=== PATIENT | male | born 1940 | race Hispanic/Latino ===

== ENCOUNTER 2020-05-18 15:00 | Outpatient (CLI) | payer MEDICARE, BC ==
--- NOTE | 2020-05-18 15:41 | RAD ---
3 views right wrist: 05/18/2020 COMPARISON: 05/18/2020 HISTORY: Injury, pain FINDINGS: There is degenerative change involving the distal carpal row laterally and the first carpom etacarpal joint. There is mild radiocarpal joint space narrowing. There is no widening of the scapholunate interval. There is no displaced fracture or evidence of dislocation seen. IMPRESSION: Degenerative joint disease. No acute fracture or dislocation. If there is clinical concer n for radio occult fracture, follow-up in 7-10 days with dedicated scaphoid views advised.
--- NOTE | 2020-05-18 15:43 | RAD ---
Right hand 3 views: 05/18/2020 COMPARISON: None available HISTORY: Right hand injury, pain of the second digit FINDINGS: There are degenerative changes involving the first through third metacarpophalangeal joints , the first interphalangeal joint, the second and third proximal interphalangeal joint, and the second through fifth distal interphalangeal joints. No radiopaque foreign body or subcutaneous gas. N o displaced fracture or evidence of dislocation. IMPRESSION: Multifocal degenerative joint disease. No displaced fracture or dislocation.
== END 2020-05-18 15:01 | disposition home or self-care (01) ==
LOC: BICRAD 15:00
PROVIDERS: ATTEND Family Medicine
DX: M79.641 Pain in right hand (principal); M19.041 Primary osteoarthritis, right hand; M15.1 Heberden's nodes (with arthropathy); M18.11 Unilateral primary osteoarthritis of first carpometacarpal joint, right hand

== ENCOUNTER 2022-03-11 09:33 | Outpatient (CLI) | payer MEDICARE, BC | END 2022-03-11 09:34 | disposition home or self-care (01) | LOC: BICRAD 09:33 | PROVIDERS: ATTEND Family Medicine | DX: M25.511 Pain in right shoulder (principal); M19.011 Primary osteoarthritis, right shoulder ==

== ENCOUNTER 2022-07-04 03:40 | Inpatient (IN) | payer MEDICARE, BC ==
[2022-07-04 04:21] LABS: #Lymphocytes 3.2 thou/uL (1.20-3.40); #Monocytes 0.9 thou/uL (0.11-0.59); #Neutrophils 13.5 thou/uL (1.40-6.50); %Basophils 0.2 % (0.0-1.0); %Eosinophils 0.1 % (0.0-10.0); %Lymphocytes 18.1 % (21.0-51.0); %Monocytes 5.2 % (0.0-10.0); %Neutrophils 76.3 % (42.0-75.0); Hemoglobin 13.6 g/dL (14.0-18.0); Mean Corpuscular Hemoglobin 32.4 pg (27.0-31.0); Mean Corpuscular Volume 95.4 fl (78.0-98.0); Mean Platelet Volume 10.3 fL (7.4-10.4); Platelet Count 245 10x3/uL (130-400); RBC Distribution Width 13.2 % (11.5-14.5); White Blood Cell (WBC) Count 17.7 10x3/uL (4.8-10.8)
[2022-07-04 04:47] LABS: ALT (SGPT) 131 U/L (8-55); AST (SGOT) 84 U/L (5-34); Alkaline Phosphatase 94 U/L (40-110); Anion Gap 14 mmol/L (10-20); BUN (Urea Nitrogen) 18 mg/dL (8.4-25.7); Bilirubin, Total 1.8 mg/dL (0.2-1.2); Calc. Creatinine Clearance 0 mL/min (70-130); Calcium 9.5 mg/dL (7.8-10.44); Carbon Dioxide 23 mmol/L (23-31); Chloride 101 mmol/L (98-107); Estimated GFR 82; Globulin 3.6 g/dL (2.4-3.5); Glucose 105 mg/dL (83-110); Lipase 885 U/L (8-78); Protein, Total 7.6 g/dL (5.8-8.1); Sodium 135 mmol/L (136-145)
[2022-07-04] MEDS ORDERED: Piperacillin/Tazobactam 3.375 GM VIAL ONE (06:16)
[2022-07-04] MEDS ORDERED: Ondansetron PF 4 MG/2 ML Vial ONE ×2 (06:16→14:50)
[2022-07-04] MEDS ORDERED: Morphine 4 MG/ML VIAL ONE (06:16)
[2022-07-04 07:51] LABS: Bilirubin Negative (Negative); Blood, Urine 3+ (Negative); Clarity Clear (Clear); Glucose, Urine (Dipstick) Normal (Negative); Ketone, Urine Negative (Negative); Leukocyte 25 Leu/uL (Negative); Nitrite Negative (Negative); Protein, Urine (Dipstick) 30 mg/dL (Neg-Trace); RBC/HPF Greater than 50 HPF (0-3); Specific Gravity, Urine 1.049 (1.002-1.036); Squamous Epithelial 0-3 HPF (0-3); Urobilinogen 3 mg/dL (Less than 2); WBC/HPF 21-50 HPF (0-3)
[2022-07-04 08:12] LABS: Bacteria/HPF Rare-Few HPF (None Seen)
[2022-07-04] MEDS ORDERED: FENTANYL 50 MCG/ML 1 ML VIAL SLOW IVP PRN (09:27)
[2022-07-04] MEDS ORDERED: Ondansetron PF 4 MG/2 ML Vial IVP PRN (09:28)
[2022-07-04] MEDS ORDERED: D5 1/2 NS w/20 mEq KCL 1,000 ML IV SCH (09:30)
[2022-07-04] MEDS ORDERED: Acetaminophen 325 MG TAB PO PRN (09:31)
[2022-07-04 09:39] VITALS: BMI 31.3
[2022-07-04] MEDS ORDERED: Morphine 2 MG/ML VIAL SLOW IVP PRN (09:40)
[2022-07-04] MEDS ORDERED: Potassium Chloride 20 MEQ in Premix Bag 1 BAG IVPB SCH (10:30)
[2022-07-04] MEDS ORDERED: Iopamidol-370 76% 500 ML 1 ML ONE (10:58)
[2022-07-04 12:01] LABS: SARS-CoV-2 NAA Rapid Test Not Detected (NotDetected)
[2022-07-04] MEDS: Potassium Chloride 20 MEQ in Lactated Ringer's 1,000 ML IV SCH (12:45)
[2022-07-04] MEDS ORDERED: fentaNYL PF 100 MCG/2 ML SYRINGE ONE (14:00)
[2022-07-04] MEDS ORDERED: PHENYLEPHRINE-NS 100 MCG/ML 10 ML SYRINGE ONE ×2 (14:00→14:50)
[2022-07-04] MEDS ORDERED: Bupivacaine/Epinephrine 0.25% 30 ML VIAL ONE (14:28)
[2022-07-04] MEDS: Piperacillin/Tazobactam 3.375 GM in Sodium Chloride 0.9% 100 ML IVPB SCH ×2 (14:38→23:11)
[2022-07-04] MEDS ORDERED: Rocuronium Bromide 10 MG/ML (10ML VIAL) ONE (14:50)
[2022-07-04] MEDS ORDERED: NEOSTIGMINE 3 MG/3 ML SYR 3 MG/3 ML SYRINGE ONE (14:50)
[2022-07-04] MEDS ORDERED: Glycopyrrolate 0.2 MG/ML 5 ML SYRINGE ONE (14:50)
[2022-07-04] MEDS ORDERED: Lidocaine 1% PF 5 ML VIAL ONE (14:50)
[2022-07-04] MEDS ORDERED: PROPOFOL 200 MG/20 ML VIAL ONE (14:50)
[2022-07-04] MEDS ORDERED: Iopamidol 15 ML ONE (15:25)
[2022-07-04] MEDS ORDERED: traMADol HCl 50 MG TAB PO PRN (16:40)
[2022-07-04] MEDS ORDERED: FENTANYL 50 MCG/ML 1 ML VIAL ONE (16:57)
[2022-07-04] MEDS ORDERED: SUGAMMADEX SODIUM 200 MG/2 ML VIAL ONE (17:00)
[2022-07-04] MEDS ORDERED: Ondansetron HCl/PF 4 MG/2 ML Vial IVP PRN (17:05)
[2022-07-04] MEDS ORDERED: Promethazine HCl 25 MG/ML VIAL IM PRN (17:05)
[2022-07-04] MEDS: Acetaminophen 325 MG TAB PO SCH ×2 (17:47→23:12)
[2022-07-04] MEDS: Famotidine/PF 20 mg/2ml Vial SLOW IVP SCH (20:02)
[2022-07-05] MEDS: Potassium Chloride 20 MEQ in Lactated Ringer's 1,000 ML IV SCH ×2 (03:00→07:19)
[2022-07-05] MEDS: Piperacillin/Tazobactam 3.375 GM in Sodium Chloride 0.9% 100 ML IVPB SCH (05:12)
[2022-07-05] MEDS: Acetaminophen 325 MG TAB PO SCH ×4 (05:12→21:46)
[2022-07-05 08:27] LABS: #Lymphocytes 2.9 thou/uL (1.20-3.40); #Monocytes 0.8 thou/uL (0.11-0.59); #Neutrophils 10.6 thou/uL (1.40-6.50); %Basophils 0.2 % (0.0-1.0); %Eosinophils 0.3 % (0.0-10.0); %Lymphocytes 20.2 % (21.0-51.0); %Monocytes 5.4 % (0.0-10.0); %Neutrophils 73.9 % (42.0-75.0); Hemoglobin 11.4 g/dL (14.0-18.0); Mean Corpuscular HGB CONC 33.1 g/dL (32.0-36.0); Mean Corpuscular Hemoglobin 32.2 pg (27.0-31.0); Mean Corpuscular Volume 97.4 fl (78.0-98.0); Mean Platelet Volume 10.6 fL (7.4-10.4); Platelet Count 216 10x3/uL (130-400); RBC Distribution Width 13.2 % (11.5-14.5); Red Blood Cell (RBC) Count 3.55 mill/uL (4.70-6.10); White Blood Cell (WBC) Count 14.3 10x3/uL (4.8-10.8)
[2022-07-05] MEDS: Amlodipine 5 MG TAB PO SCH (08:29)
[2022-07-05] MEDS: Losartan 25 MG TAB PO SCH (08:29)
[2022-07-05] MEDS: Hydrochlorothiazide 25 MG TAB PO SCH (08:30)
[2022-07-05] MEDS: Famotidine/PF 20 mg/2ml Vial SLOW IVP SCH ×2 (08:30→20:04)
[2022-07-05 08:36] LABS: ALT (SGPT) 72 U/L (8-55); AST (SGOT) 44 U/L (5-34); Alkaline Phosphatase 64 U/L (40-110); Anion Gap 11 mmol/L (10-20); BUN (Urea Nitrogen) 13 mg/dL (8.4-25.7); Bilirubin, Total 1.6 mg/dL (0.2-1.2); Calc. Creatinine Clearance 87 mL/min (70-130); Calcium 8.1 mg/dL (7.8-10.44); Carbon Dioxide 23 mmol/L (23-31); Cardiac Risk 4.6 (Less than 4.5); Chloride 104 mmol/L (98-107); Cholesterol 132 mg/dl (< 200 Desired); Estimated GFR 87; Globulin 2.8 g/dL (2.4-3.5); Glucose 106 mg/dL (83-110); HDL Cholesterol 29 mg/dL (>60 Neg Risk); LDL Cholesterol, Calculated 81 mg/dL; Lipase 98 U/L (8-78); Magnesium 1.7 mg/dL (1.6-2.6); Potassium 3.1 mmol/L (3.5-5.1); Protein, Total 5.8 g/dL (5.8-8.1); Sodium 135 mmol/L (136-145); Triglycerides 111 mg/dL (Less than 150)
[2022-07-05 08:38] LABS: Phosphorus 2.2 mg/dL (2.3-4.7)
[2022-07-05] MEDS ORDERED: Meropenem 1 GM in Sodium Chloride 0.9% 100 ML IVPB SCH (12:45)
[2022-07-05] MEDS ORDERED: Piperacillin/Tazobactam 3.375 GM in Sodium Chloride 0.9% 100 ML IVPB SCH (14:00)
[2022-07-05] MEDS ORDERED: Potassium Phosphate 12 MMOL in Sodium Chloride 0.9% 100 ML IVPB SCH (14:00)
[2022-07-05] MEDS: Meropenem 1 GM in Sodium Chloride 0.9% 100 ML IVPB SCH (21:36)
[2022-07-05] MEDS: Melatonin 3 MG TAB PO PRN (21:43)
[2022-07-06] MEDS: Acetaminophen 325 MG TAB PO SCH ×4 (05:07→21:05)
[2022-07-06] MEDS: Meropenem 1 GM in Sodium Chloride 0.9% 100 ML IVPB SCH ×3 (05:07→21:04)
[2022-07-06 07:22] LABS: #Eosinphils 0.1 thou/uL (0.0-0.7); #Lymphocytes 2.7 thou/uL (1.20-3.40); #Neutrophils 11.4 thou/uL (1.40-6.50); %Eosinophils 0.5 % (0.0-10.0); %Lymphocytes 17.7 % (21.0-51.0); %Monocytes 6.8 % (0.0-10.0); Hemoglobin 11.4 g/dL (14.0-18.0); Mean Corpuscular HGB CONC 33.4 g/dL (32.0-36.0); Mean Corpuscular Hemoglobin 32.3 pg (27.0-31.0); Mean Corpuscular Volume 96.6 fl (78.0-98.0); Mean Platelet Volume 10.1 fL (7.4-10.4); Platelet Count 228 10x3/uL (130-400); RBC Distribution Width 13.3 % (11.5-14.5); Red Blood Cell (RBC) Count 3.53 mill/uL (4.70-6.10); White Blood Cell (WBC) Count 15.2 10x3/uL (4.8-10.8)
[2022-07-06 07:41] LABS: ALT (SGPT) 57 U/L (8-55); AST (SGOT) 38 U/L (5-34); Alkaline Phosphatase 74 U/L (40-110); Anion Gap 10 mmol/L (10-20); BUN (Urea Nitrogen) 9 mg/dL (8.4-25.7); Calc. Creatinine Clearance 91 mL/min (70-130); Calcium 8.4 mg/dL (7.8-10.44); Carbon Dioxide 25 mmol/L (23-31); Chloride 103 mmol/L (98-107); Estimated GFR 88; Globulin 2.9 g/dL (2.4-3.5); Glucose 103 mg/dL (83-110); Lipase 136 U/L (8-78); Protein, Total 5.9 g/dL (5.8-8.1); Sodium 135 mmol/L (136-145)
[2022-07-06] MEDS ORDERED: Potassium Chloride 20 MEQ TAB PO SCH (08:30)
[2022-07-06] MEDS: Losartan 25 MG TAB PO SCH (08:59)
[2022-07-06] MEDS: Amlodipine 5 MG TAB PO SCH (09:00)
[2022-07-06] MEDS: Sodium Chloride 0.9% 1,000 ML IV SCH ×2 (09:01→17:05)
[2022-07-06] MEDS: Potassium Chloride 20 MEQ TAB PO SCH ×2 (09:01→11:43)
[2022-07-06] MEDS: Famotidine/PF 20 mg/2ml Vial SLOW IVP SCH ×2 (09:01→21:04)
[2022-07-07] MEDS: Sodium Chloride 0.9% 1,000 ML IV SCH (00:01)
[2022-07-07] MEDS: Melatonin 3 MG TAB PO PRN (00:02)
[2022-07-07] MEDS: Acetaminophen 325 MG TAB PO SCH ×2 (04:40→09:15)
[2022-07-07] MEDS: Meropenem 1 GM in Sodium Chloride 0.9% 100 ML IVPB SCH (04:40)
[2022-07-07] MEDS ORDERED: Amoxicillin/Potassium Clav 875 MG TAB PO SCH (09:00)
[2022-07-07] MEDS: Hydrochlorothiazide 25 MG TAB PO SCH (09:14)
[2022-07-07] MEDS: Losartan 25 MG TAB PO SCH (09:14)
[2022-07-07 09:15] VITALS: BP 163/79; TEMP 100.2
[2022-07-07] MEDS: Amlodipine 5 MG TAB PO SCH (09:16)
[2022-07-07] MEDS: Famotidine/PF 20 mg/2ml Vial SLOW IVP SCH (09:16)
[2022-07-07 09:53] LABS: #Eosinphils 0.1 thou/uL (0.0-0.7); #Lymphocytes 2.6 thou/uL (1.20-3.40); #Monocytes 1.2 thou/uL (0.11-0.59); #Neutrophils 10.5 thou/uL (1.40-6.50); %Basophils 0.1 % (0.0-1.0); %Eosinophils 0.7 % (0.0-10.0); %Lymphocytes 18.2 % (21.0-51.0); Hemoglobin 11.8 g/dL (14.0-18.0); Mean Corpuscular HGB CONC 32.6 g/dL (32.0-36.0); Mean Corpuscular Hemoglobin 31.9 pg (27.0-31.0); Mean Corpuscular Volume 97.8 fl (78.0-98.0); Mean Platelet Volume 9.7 fL (7.4-10.4); Platelet Count 286 10x3/uL (130-400); RBC Distribution Width 13.2 % (11.5-14.5); Red Blood Cell (RBC) Count 3.68 mill/uL (4.70-6.10); White Blood Cell (WBC) Count 14.4 10x3/uL (4.8-10.8)
[2022-07-07 10:13] LABS: ALT (SGPT) 52 U/L (8-55); AST (SGOT) 42 U/L (5-34); Albumin 2.9 g/dL (3.4-4.8); Alkaline Phosphatase 107 U/L (40-110); Anion Gap 11 mmol/L (10-20); BUN (Urea Nitrogen) 13 mg/dL (8.4-25.7); Bilirubin, Total 0.6 mg/dL (0.2-1.2); Calc. Creatinine Clearance 100 mL/min (70-130); Calcium 8.8 mg/dL (7.8-10.44); Carbon Dioxide 23 mmol/L (23-31); Chloride 106 mmol/L (98-107); Estimated GFR 90; Globulin 3.2 g/dL (2.4-3.5); Glucose 119 mg/dL (83-110); Potassium 3.7 mmol/L (3.5-5.1); Protein, Total 6.1 g/dL (5.8-8.1); Sodium 136 mmol/L (136-145)
== END 2022-07-07 12:12 | disposition home or self-care (01) | DRG 417 ==
LOC: ERS 03:40 → T4-A 09:07
PROVIDERS: ADMIT Internal Medicine; ATTEND Internal Medicine
PROC: 0FT44ZZ Resection of Gallbladder, Percutaneous Endoscopic Approach (ICD-10-PCS; principal; 2022-07-04)
PROC: BF131ZZ Fluoroscopy of Gallbladder and Bile Ducts using Low Osmolar Contrast (ICD-10-PCS; 2022-07-04)
DX: K80.00 Calculus of gallbladder with acute cholecystitis without obstruction (principal); K85.10 Biliary acute pancreatitis without necrosis or infection; Z20.822 Contact with and (suspected) exposure to COVID-19; E87.6 Hypokalemia; I10 Essential (primary) hypertension; E78.5 Hyperlipidemia, unspecified; E66.9 Obesity, unspecified; Z60.2 Problems related to living alone; F17.210 Nicotine dependence, cigarettes, uncomplicated; Z79.899 Other long term (current) drug therapy; Z68.31 Body mass index [BMI] 31.0-31.9, adult; Z90.81 Acquired absence of spleen; Z98.890 Other specified postprocedural states
CPT/HCPCS: 36415; 47532; 74177; 76705; 80053; 80061; 81003; 81015; 82550; 83605; 83690; 83735; 84100; 84484; 85025; 87040; 87077; 87086; 87149; 87186; 88304; 93005; C1889; J2185; J2270; J2272; J2405; J2543; J2704; J3010; J3480; J3490; J7050; J7120; Q9967; S0028; U0002; U0003; U0005

== ENCOUNTER 2022-10-11 09:52 | Outpatient (CLI) | payer MEDICARE, BC ==
[2022-10-11 11:54] LABS: #Basophils 0.1 10x3/uL (0.0-0.2); #Eosinphils 0.1 10x3/uL (0.0-0.5); #Monocytes 0.7 10x3/uL (0.0-1.1); #Neutrophils 4.1 10x3/uL (1.5-8.4); %Basophils 0.9 % (0.0-2.0); %Eosinophils 1.6 % (0.0-6.0); %Lymphocytes 33.9 % (18.0-47.0); %Monocytes 9.2 % (0.0-10.0); %Neutrophils 54.3 % (40.0-75.0); Hemoglobin 13.1 g/dL (13.5-17.5); Mean Corpuscular HGB CONC 34.5 g/dL (32.0-36.0); Mean Corpuscular Hemoglobin 31.1 pg (27.0-33.0); Mean Corpuscular Volume 90.3 fl (81.2-95.1); Mean Platelet Volume 12.7 fl (7.4-10.4); Platelet Count 308 10x3/uL (150-450); RBC Distribution Width 14.9 % (11.5-14.5); Red Blood Cell (RBC) Count 4.21 10x6/uL (4.32-5.72); White Blood Cell (WBC) Count 7.5 10x3/uL (3.5-10.5)
[2022-10-11 12:35] LABS: ALT (SGPT) 33 U/L (8-55); AST (SGOT) 34 U/L (5-34); Albumin 4.1 g/dL (3.4-4.8); Alkaline Phosphatase 61 U/L (40-110); Anion Gap 11 mmol/L (10-20); BUN (Urea Nitrogen) 21 mg/dL (8.4-25.7); Bilirubin, Total 0.6 mg/dL (0.2-1.2); Calc. Creatinine Clearance 0 mL/min (70-130); Calcium 9.7 mg/dL (7.8-10.44); Carbon Dioxide 29 mmol/L (23-31); Chloride 104 mmol/L (98-107); Estimated GFR 73; Glucose 120 mg/dL (83-110); Potassium 3.5 mmol/L (3.5-5.1); Protein, Total 7.1 g/dL (5.8-8.1); Sodium 140 mmol/L (136-145)
== END 2022-10-11 09:53 | disposition home or self-care (01) ==
LOC: LABBT 09:52
PROVIDERS: ATTEND Surgery
DX: Z01.818 Encounter for other preprocedural examination (principal); K40.90 Unilateral inguinal hernia, without obstruction or gangrene, not specified as recurrent
CPT/HCPCS: 80053; 85025; 93005; 93010

== ENCOUNTER 2022-11-30 01:40 | Emergency (ER) | payer MEDICARE, BC ==
[2022-11-30 02:11] LABS: #Basophils 0.1 thou/uL (0.0-0.2); #Eosinphils 0.2 thou/uL (0.0-0.7); #Neutrophils 5.2 thou/uL (1.40-6.50); %Basophils 0.7 % (0.0-1.0); %Eosinophils 1.5 % (0.0-10.0); %Lymphocytes 51.9 % (21.0-51.0); %Monocytes 7.1 % (0.0-10.0); %Neutrophils 38.7 % (42.0-75.0); Hematocrit 36.4 % (42.0-52.0); Mean Corpuscular HGB CONC 35.7 g/dL (32.0-36.0); Mean Corpuscular Hemoglobin 32.3 pg (27.0-31.0); Mean Corpuscular Volume 90.3 fl (78.0-98.0); Mean Platelet Volume 11.6 fL (7.4-10.4); Platelet Count 263 10x3/uL (130-400); RBC Distribution Width 15.3 % (11.5-14.5); Red Blood Cell (RBC) Count 4.03 mill/uL (4.70-6.10); White Blood Cell (WBC) Count 13.4 10x3/uL (4.8-10.8)
[2022-11-30 02:32] LABS: ALT (SGPT) 32 U/L (8-55); AST (SGOT) 37 U/L (5-34); Albumin 4.1 g/dL (3.4-4.8); Alkaline Phosphatase 67 U/L (40-110); Anion Gap 14 mmol/L (10-20); BUN (Urea Nitrogen) 20 mg/dL (8.4-25.7); Bilirubin, Total 0.4 mg/dL (0.2-1.2); Calc. Creatinine Clearance 0 mL/min (70-130); Calcium 9.9 mg/dL (7.8-10.44); Carbon Dioxide 25 mmol/L (23-31); Chloride 105 mmol/L (98-107); Estimated GFR 56; Globulin 3.6 g/dL (2.4-3.5); Glucose 113 mg/dL (83-110); Potassium 3.3 mmol/L (3.5-5.1); Protein, Total 7.7 g/dL (5.8-8.1); Sodium 141 mmol/L (136-145)
[2022-11-30] MEDS ORDERED: Oxymetazoline HCl 0.05% (30 ML BOT) ONE (03:27)
== END 2022-11-30 03:50 | disposition home or self-care (01) ==
LOC: ERS 01:40
DX: R04.0 Epistaxis (principal); E78.5 Hyperlipidemia, unspecified; I10 Essential (primary) hypertension; F17.200 Nicotine dependence, unspecified, uncomplicated
CPT/HCPCS: 80053; 85025; 86850; 86900; 86901; 99283

== ENCOUNTER 2025-03-08 11:03 | Emergency (ER) | payer MEDICARE ==
[2025-03-08 11:43] LABS: #Basophils 0.05 10x3/uL (0.0-0.2); #Eosinophils 0.10 10x3/uL (0.0-0.7); #Monocytes 0.80 10x3/uL (0.11-0.59); #Neutrophils 6.09 10x3/uL (1.40-6.50); %Basophils 0.5 % (0.0-1.0); %Eosinophils 1.0 % (0.0-10.0); %Lymphocytes 26.0 % (21.0-51.0); %Monocytes 8.4 % (0.0-10.0); %Neutrophils 63.8 % (42.0-75.0); Hematocrit 36.0 % (42.0-52.0); Hemoglobin 12.5 g/dL (14.0-18.0); Mean Corpuscular Hemoglobin 31.3 pg (27.0-31.0); Mean Corpuscular Volume 90.0 fL (78.0-98.0); Platelet Count 303 10x3/uL (130-400); Red Blood Cell (RBC) Count 4.00 mill/uL (4.70-6.10); White Blood Cell (WBC) Count 9.56 10x3/uL (4.8-10.8)
[2025-03-08] MEDS ORDERED: Ondansetron PF 4 MG/2 ML Vial ONE (12:03)
[2025-03-08 12:09] LABS: ALT (SGPT) 73 U/L (Less than 45); AST (SGOT) 78 U/L (11-34); Albumin 3.7 g/dL (3.1-4.5); Alkaline Phosphatase 189 U/L (40-110); Anion Gap 14 mmol/L (10-20); BUN (Urea Nitrogen) 19 mg/dL (8.4-25.7); Bilirubin, Total 0.9 mg/dL (0.3-1.2); Calc. Creatinine Clearance 0 mL/min (70-130); Calcium 10.3 mg/dL (7.8-10.44); Carbon Dioxide 27 mmol/L (23-31); Chloride 101 mmol/L (98-107); Globulin 3.7 g/dL (2.4-3.5); Glucose 105 mg/dL (83-110); Potassium 3.9 mmol/L (3.5-5.1); Sodium 138 mmol/L (136-145)
[2025-03-08] MEDS ORDERED: Iopamidol-370 76% 500 ML MDV (1 ML CHARGE) ONE (12:11)
[2025-03-08 12:44] LABS: Glucose, Urine (Dipstick) Negative (Negative); Leukocyte Negative (Negative); Protein, Urine (Dipstick) Negative (Neg-Trace); Specific Gravity, Urine 1.010 (1.005-1.030)
[2025-03-08 12:54] LABS: Bacteria/HPF None Seen HPF (None Seen); CAUTI Indications for Culture Pelvic or flank pain; RBC/HPF 0-3 HPF (0-3); WBC/HPF 0-3 HPF (0-3)
[2025-03-08 12:57] LABS: Urine Culture Reflex No No
== END 2025-03-08 14:30 | disposition home or self-care (01) ==
LOC: ERS 11:03
DX: R10.13 Epigastric pain (principal); K76.89 Other specified diseases of liver; I10 Essential (primary) hypertension; Z79.899 Other long term (current) drug therapy; F17.200 Nicotine dependence, unspecified, uncomplicated; Z79.82 Long term (current) use of aspirin
CPT/HCPCS: 74177; 80053; 81001; 85025; 96374; 96375; 99284; J2405; Q9967

== ENCOUNTER 2025-03-19 07:36 | Outpatient (CLI) | payer MEDICARE | END 2025-03-19 07:37 | disposition home or self-care (01) | LOC: SCSMRI 07:36 | PROVIDERS: ATTEND Physician Assistant Medical | DX: R10.11 Right upper quadrant pain (principal); R79.89 Other specified abnormal findings of blood chemistry; R16.0 Hepatomegaly, not elsewhere classified; K76.9 Liver disease, unspecified; Z83.719 Family history of colon polyps, unspecified | CPT/HCPCS: 74183 ==